=== PATIENT | male | born 1995 | race American Indian/Alaskan Native ===

== ENCOUNTER 2017-04-22 16:56 | Emergency (ER) | payer OTHER ==
[2017-04-22 17:00] VITALS: BP 143/80; PULSE 74; RESP 16; TEMP 97.3; O2SAT 99
--- NOTE | 2017-04-22 17:16 | C.PDOC ---
History Of Present Illness 21 y/o male presents to ED with complaints of sore throat since yesterday. Patient reports throat "feeling scratchy" and states he missed work and needs note to go back to work. Patient denies VALENZUELA, N/V/D, Fever, cp or any other complaints at this time. Time Seen by Provider: 04/22/17 17:06 Chief Complaint (Nursing): ENT Problem History Per: Patient History/Exam Limitations: no limitations Onset/Duration Of Symptoms: Days Current Symptoms Are (Timing): Still Present Past Medical History Reviewed: Historical Data, Nursing Documentation, Vital Signs Vital Signs: Last Vital Signs Temp 97.3 F L 04/22/17 16:58 Pulse 74 04/22/17 16:58 Resp 16 04/22/17 16:58 BP 143/80 04/22/17 16:58 Pulse Ox 99 04/22/17 18:23 Family History: States: No Known Family Hx - Social History Hx Alcohol Use: No Hx Substance Use: No - Immunization History Hx Tetanus Toxoid Vaccination: Yes Hx Influenza Vaccination: No Hx Pneumococcal Vaccination: No Review Of Systems Except As Marked, All Systems Reviewed And Found Negative. Constitutional: Negative for: Fever, Chills ENT: Positive for: Throat Swelling Cardiovascular: Negative for: Chest Pain Respiratory: Negative for: Cough, Shortness of Breath Gastrointestinal: Negative for: Nausea, Vomiting, Diarrhea Skin: Negative for: Rash Neurological: Negative for: Headache Physical Exam - Physical Exam Appears: Non-toxic, No Acute Distress Skin: Normal Color, Warm Head: Atraumatic, Normacephalic Eye(s): bilateral: Normal Inspection, PERRL, EOMI Ear(s): Bilateral: Normal Oral Mucosa: Moist Throat: Erythema, No Exudate, No Drooling Neck: Normal ROM Chest: Symmetrical Cardiovascular: Rhythm Regular, No Murmur Respiratory: Normal Breath Sounds, No Rales, No Rhonchi, No Wheezing Gastrointestinal/Abdominal: Soft, No Tenderness, No Guarding, No Rebound Extremity: Normal ROM, Capillary Refill (<2 seconds) Neurological/Psych: Oriented x3, Normal Motor, Normal Sensation Gait: Steady ED Course And Treatment O2 Sat by Pulse Oximetry: 99 (RA) Pulse Ox Interpretation: Normal Medical Decision Making Medical Decision Making: Patient received Ibuprofen and was D/C home with instructions to follow up with PMD. Disposition Counseled Patient/Family Regarding: Diagnosis, Need For Followup, Rx Given - Disposition Disposition: HOME/ ROUTINE Disposition Time: 17:13 Condition: STABLE Prescriptions: Ibuprofen [Motrin] 600 mg PO TID #15 tab Instructions: Ibuprofen (By mouth), Pharyngitis (ED) Forms: Work/School/Gym Excuse - POA Present On Arrival: None - Clinical Impression Clinical Impression: Pharyngitis - PA / FIELD APPLICATIONS SPECIALIST / Resident Statement MD/DO has reviewed & agrees with the documentation as recorded. MD/DO has examined the patient and agrees with the treatment plan. - Scribe Statement The provider has reviewed the documentation as recorded by the Gurpreetibkhalida Cassidy All medical record entries made by the Carlos were at my direction and personally dictated by me. I have reviewed the chart and agree that the record accurately reflects my personal performance of the history, physical exam, medical decision making, and the department course for this patient. I have also personally directed, reviewed, and agree with the discharge instructions and disposition.
== END 2017-04-22 17:42 | disposition home or self-care (01) ==
LOC: C.ER 16:56
DX: J02.9 Acute pharyngitis, unspecified (principal)

== ENCOUNTER 2017-06-22 09:41 | Emergency (ER) | payer OTHER ==
[2017-06-22 09:52] VITALS: BMI 26.2
[2017-06-22 09:57] VITALS: RESP 18; TEMP 98.5; O2SAT 99
[2017-06-22] MEDS ORDERED: Lidocaine 1% Inj (20ml) ONE (10:05)
[2017-06-22] MEDS ORDERED: Bacitracin 500 Units/gm Oint Foilpak UD ONE (10:58)
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
[2017-06-22 11:24] VITALS: BP 120/72; PULSE 75
== END 2017-06-22 11:24 | disposition home or self-care (01) ==
LOC: SUPCPDRO 09:41 → C.ER 09:41
DX: S61.411A Laceration without foreign body of right hand, initial encounter (principal); S61.212A Laceration without foreign body of right middle finger without damage to nail, initial encounter; W25.XXXA Contact with sharp glass, initial encounter

== ENCOUNTER 2017-11-18 14:13 | Emergency (ER) | payer OTHER, BC ==
[2017-11-18 14:13] VITALS: BMI 26.2
[2017-11-18 14:20] VITALS: TEMP 98.4
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
[2017-11-18 15:00] VITALS: BP 118/74; PULSE 69; RESP 18
[2017-11-18 18:59] VITALS: O2SAT 100
== END 2017-11-18 15:24 | disposition home or self-care (01) ==
LOC: C.ER 14:13
DX: S09.90XA Unspecified injury of head, initial encounter (principal); V49.9XXA Car occupant (driver) (passenger) injured in unspecified traffic accident, initial encounter